=== PATIENT | female | born 1980 | race Caucasian/White ===

== ENCOUNTER 2017-11-28 06:46 | Day surgery (SDC) | payer OTHER ==
[~2017-11-28 06:46] MED LIST: CEFAZOLIN 2 GM/50 ML (PMX) 50 ML IVPB; SOD CHLORIDE 0.9% 1,000 ML IV
[2017-11-28] MEDS ORDERED: CEFAZOLIN 1 GM INJ (07:00)
[2017-11-28] MEDS ORDERED: DEXAMETHASONE 4 MG/ML 1 ML INJ (07:00)
[2017-11-28] MEDS ORDERED: METOCLOPRAMIDE 10 MG INJ (07:00)
[2017-11-28 07:51] LABS: ADD MAN DIFF? NO
[2017-11-28 07:59] LABS: WHITE BLOOD COUNT 8.4 10^3/ul (4.8-10.8)
[2017-11-28 07:59] LABS: BASOPHILS % 0.2 % (0.0-2.0); EOSINOPHILS # 0.1 10^3/ul (0.0-0.5); EOSINOPHILS % 0.8 % (0.0-7.0); HEMATOCRIT 38.3 % (37.0-47.0); HEMOGLOBIN 13.1 g/dl (12.0-16.0); LYMPHOCYTES # 3.8 10^3/ul (0.8-2.9); LYMPHOCYTES % 44.9 % (15.0-51.0); MEAN CORPUSCULAR HEMOGLOBIN 31.1 pg (29.0-33.0); MEAN CORPUSCULAR HGB CONC 34.2 g/dl (32.0-37.0); MEAN PLATELET VOLUME 10.4 fl (7.4-10.4); MONOCYTES % 11.5 % (0.0-11.0); NEUTROPHIL # 3.5 10^3/ul (1.6-7.5); NEUTROPHILS % 42.2 % (39.0-77.0); PLATELET COUNT 239 10^3/UL (140-415); RED BLOOD COUNT 4.21 10^6/ul (4.20-5.40); RED CELL DISTRIBUTION WIDTH 12.5 % (11.5-14.5)
[2017-11-28 08:15] LABS: ALANINE AMINOTRANSFERASE 19 IU/L (13-69); ALBUMIN 3.8 g/dl (3.3-4.9); ALBUMIN/GLOBULIN RATIO 0.92; ALKALINE PHOSPHATASE 54 IU/L (42-121); ANION GAP 16 (8-16); ASPARTATE AMINO TRANSFERASE 25 IU/L (15-46); BILIRUBIN,INDIRECT 0.1 mg/dl (0-1.1); BILIRUBIN,TOTAL 0.1 mg/dl (0.2-1.3); CARBON DIOXIDE 33 mmol/L (21-31); CHLORIDE 101 mmol/L (97-110); GLUCOSE 91 mg/dl (70-220); TOTAL PROTEIN 7.9 g/dl (6.1-8.1)
[2017-11-28 08:16] LABS: INR 0.93; PROTIME 12.5 Sec (11.9-14.9)
[2017-11-28 08:18] LABS: BLOOD UREA NITROGEN 8 mg/dl (7-20); CALCIUM 9.5 mg/dl (8.4-10.2); CREATININE 0.83 mg/dl (0.44-1.00); POTASSIUM 4.1 mmol/L (3.5-5.1)
[2017-11-28 08:21] LABS: SODIUM 146 mmol/L (135-144)
[2017-11-28] MEDS ORDERED: MIDAZOLAM 1 MG/ML 2 ML INJ (08:27)
[2017-11-28] MEDS ORDERED: FENTAnyl 50 MCG/ML VIAL (08:28)
[2017-11-28] MEDS ORDERED: ONDANSETRON 4 MG INJ (08:54)
[2017-11-28 08:57] LABS: PARTIAL THROMBOPLASTIN TIME 24.5 Sec (25.0-35.0)
[2017-11-28] MEDS ORDERED: LIDOCAINE 2% (SDV) 5 ML INJ (09:03)
[2017-11-28] MEDS ORDERED: PROPOFOL 20 ML (09:03)
[2017-11-28] MEDS ORDERED: HYDROCODONE/APAP (7.5/325) TAB PO (09:30)
[2017-11-28] MEDS ORDERED: MEPERIDINE 25 MG INJ (09:37)
[2017-11-28] MEDS ORDERED: HYDROmorphONE (0.2 MG/ML) 10ML SYG IV ×2 (10:00)
[2017-11-28] MEDS ORDERED: DIPHENHYDRAMINE 50 MG INJ IV (10:00)
[2017-11-28] MEDS ORDERED: MEPERIDINE 25 MG INJ IV (10:00)
[2017-11-28] MEDS ORDERED: KETOROLAC 30 MG INJ IV (10:00)
[2017-11-28] MEDS ORDERED: FENTAnyl 50 MCG/ML VIAL IV ×2 (10:00)
[2017-11-28] MEDS ORDERED: ONDANSETRON 4 MG INJ IV (10:00)
== END 2017-11-28 11:35 | disposition home or self-care (01) ==
LOC: SDS 06:46
DX: D24.1 Benign neoplasm of right breast (principal); F20.9 Schizophrenia, unspecified
CPT/HCPCS: 19301; 71045; 80053; 85025; 85610; 85730; 88307; 93005